=== PATIENT | female | born 1985 ===

== ENCOUNTER → 2018-02-24 | Outpatient (REF) | payer OTHER | LOC: M LAB REF 18:56 | DX: Z12.4 Encounter for screening for malignant neoplasm of cervix (principal) | CPT/HCPCS: 88142 ==

== ENCOUNTER → 2021-04-30 | Outpatient (REF) | payer OTHER | LOC: M LAB REF 15:55 | PROVIDERS: ATTEND Family Medicine | DX: Z12.4 Encounter for screening for malignant neoplasm of cervix (principal) ==